=== PATIENT | female | born 1995 | race Caucasian/White ===

== ENCOUNTER 2017-08-09 11:43 | Emergency (ER) | payer OTHER, SELFPAY ==
[2017-08-09] MEDS ORDERED: Ketorolac Tromethamine 60 MG/2 ML VIAL ONE (12:40)
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
== END 2017-08-09 14:40 | disposition home or self-care (01) ==
LOC: ERS 11:43
DX: S39.012A Strain of muscle, fascia and tendon of lower back, initial encounter (principal); S29.012A Strain of muscle and tendon of back wall of thorax, initial encounter; V44.5XXA Car driver injured in collision with heavy transport vehicle or bus in traffic accident, initial encounter
CPT/HCPCS: 71020; 72100; 96372; J1885

== ENCOUNTER 2018-02-05 12:52 | Outpatient (CLI) | payer OTHER | END 2018-02-05 12:53 | disposition home or self-care (01) | LOC: BICCT 12:52 | PROVIDERS: ATTEND Neurological Surgery | DX: M47.896 Other spondylosis, lumbar region (principal); M43.16 Spondylolisthesis, lumbar region; N20.0 Calculus of kidney | CPT/HCPCS: 72131 ==

== ENCOUNTER 2018-03-05 09:54 | Outpatient (CLI) | payer OTHER ==
[2018-03-05 10:56] LABS: BHCG - Serum Negative (NEGATIVE); Pregs Control Background? CLEAR/WHITE (CLR/WHITE); Pregs Control Bar Appear? YES (CONTROL BAR)
== END 2018-03-05 09:55 | disposition home or self-care (01) ==
LOC: LABBT 09:54
PROVIDERS: ATTEND Neurological Surgery
DX: Z01.818 Encounter for other preprocedural examination (principal); M43.16 Spondylolisthesis, lumbar region
CPT/HCPCS: 84703

== ENCOUNTER 2018-04-04 08:13 | Day surgery (SDC) | payer OTHER ==
--- NOTE | 2018-03-11 22:18 | HP ---
DATE OF ENCOUNTER: 03/12/2018 HISTORY OF PRESENT ILLNESS: Ms. Barr is a pleasant 22-year-old woman who presents for evaluatio n of years with lower back pain following a previous evaluation from last year for the same issue. S he had an MRI performed at that time, which revealed an L5-S1 spondylolisthesis secondary to bilatera l pars defects. At that time, she is only having back pain, but now this is worsened to include radi cular L5 symptoms as well as numbness. She does not have any weakness at this point. She does feels that after discussion of a year ago that involved alarm symptoms that she worries about continued pr ogression and would rather get this fixed at this time. PAST MEDICAL HISTORY: Nothing significant other than anemia. CURRENT MEDICATIONS: None. ALLERGIES: No known drug allergies. PHYSICAL EXAMINATION: Patient is alert and oriented x3. Gait is normal. No ataxia. Positive right straight leg raise and left straight leg raise. Reflexes are equal and present bilaterally at the p atella and Achilles tendon. ASSESSMENT: Spondylolisthesis pars defects, lumbar radiculopathy, and back pain. PLAN: Dr. Riley met with the patient, reviewed imaging and advocated for bilateral L5 facetectomy at L5-S1 fusion. He explained to the patient the risks, benefits, and alternatives of the procedure. The patient expressed understanding and would like to move forward with surgery as discussed. I do b elieve the patient is mentally competent and capable of making medical decisions for herself and we w ill move forward with surgery as planned. This is Hector Khan PA-C dictating for Dr. Riley.
[2018-04-03 12:13] VITALS: BMI 29.2
[2018-04-04] MEDS ORDERED: CEFAZOLIN/Water 2 GM/20 ML SYRINGE ONE ×2 (08:47→16:02)
[2018-04-04] MEDS ORDERED: Thrombin 5000 UNITS/5 ML VIAL ONE (09:21)
[2018-04-04] MEDS ORDERED: Bupivacaine HCl 0.5%/Epinephrine 1:200,000/PF 30 ml Vial ONE (09:21)
[2018-04-04 09:37] LABS: BHCG - Serum Negative (NEGATIVE); Pregs Control Background? CLEAR/WHITE (CLR/WHITE); Pregs Control Bar Appear? YES (CONTROL BAR)
[2018-04-04] MEDS ORDERED: Fentanyl 100 MCG/2 ML VIAL ONE ×4 (09:39→12:55)
--- NOTE | 2018-04-04 13:08 | OP ---
DATE OF PROCEDURE: 04/04/2018 SURGEON: Rayray Riley M.D. HEAD IRRIGATOR: Hector Khan PA-C. INDICATION: Pain. PREOPERATIVE DIAGNOSIS: Lumbar spondylolysis with grade I spondylolysis of L5 upon S1. PROCEDURE: Bilateral L5-S1 facetectomy, bilateral L5-S1 posterolateral instrumented fusion, bilatera l placement of allograft and autograft. ANESTHESIA: General. PROCEDURE IN DETAIL: The patient was brought into the operating room and placed under anesthesia. Sh e was flipped from supine to prone position on the operating room table. A linear incision was plann ed over the L5-S1 segment. After prepping and draping and after an appropriate operative pause, the incision was created. The soft tissues swept away from midline. After identifying the appropriate l evel with C-arm fluoroscopy, the facet joints at L5-S1 were removed bilaterally. After decompressing the exiting and descending nerve roots, pedicle screws were placed at L5-S1 bilaterally. An intraop erative 3-D CT scan was performed to confirm appropriate placement of hardware. After confirming the appropriate placement of hardware rods were placed across the screw heads and final tightened with s et screws. Allograft and autograft material was placed within the lateral confines of the instrument ation construct. The wound was irrigated. Hemostasis was maintained throughout. The wound was then closed in anatomic layers and a pressure dressing was applied. There were no known procedural compl ications.
[2018-04-04] MEDS ORDERED: Metoclopramide HCl 10 MG/2 ML VIAL ONE (13:55)
[2018-04-04] MEDS ORDERED: Lidocaine 1% PF 5 ML VIAL ONE (13:55)
[2018-04-04] MEDS ORDERED: Ondansetron HCl/PF 4 MG/2 ML Vial ONE (13:55)
[2018-04-04] MEDS ORDERED: PROPOFOL 200 MG/20 ML VIAL ONE (13:55)
[2018-04-04] MEDS ORDERED: Glycopyrrolate 0.2 MG/ML 5 ML SYRINGE ONE (13:55)
[2018-04-04] MEDS ORDERED: Dexamethasone 20 MG/5 ML VIAL ONE (13:55)
[2018-04-04] MEDS ORDERED: HYDROcodone/Acetaminophen 5/325 mg Tablet ONE (15:08)
== END 2018-04-04 16:18 | disposition home or self-care (01) ==
LOC: SDC 08:13
PROVIDERS: ATTEND Neurological Surgery
PROC: 0SG3071 Fusion of Lumbosacral Joint with Autologous Tissue Substitute, Posterior Approach, Posterior Column, Open Approach (ICD-10-PCS; principal; 2018-04-04)
PROC: 0SG30J1 Fusion of Lumbosacral Joint with Synthetic Substitute, Posterior Approach, Posterior Column, Open Approach (ICD-10-PCS; principal; 2018-04-04)
DX: M43.17 Spondylolisthesis, lumbosacral region (principal); M54.16 Radiculopathy, lumbar region; D64.9 Anemia, unspecified; Z79.899 Other long term (current) drug therapy
CPT/HCPCS: 76001; 84703; 96374; 96375; 96376; C1713; J0131; J0670; J1100; J2001; J2405; J2704; J2765; J3010

== ENCOUNTER 2019-02-01 06:30 | Inpatient (IN) | payer OTHER ==
[2019-02-01] MEDS ORDERED: NS w/ Oxytocin 10 units 500 ML IV SCH ×2 (11:46)
[2019-02-01] MEDS ORDERED: Misoprostol 200 MCG TAB PR PRN (11:46)
[2019-02-01] MEDS ORDERED: HYDROcodone/Acetaminophen 5/325 mg Tablet PO PRN ×2 (11:46→23:44)
[2019-02-01] MEDS ORDERED: Butorphanol Tartrate 1 MG/ML VIAL SLOW IVP PRN (11:46)
[2019-02-01] MEDS ORDERED: Carboprost 250 MCG/ML AMP IM PRN (11:46)
[2019-02-01] MEDS ORDERED: Lidocaine 1% (PF) 30 ML VIAL SC PRN (11:46)
[2019-02-01] MEDS ORDERED: Promethazine HCl 25 MG/ML VIAL IM PRN ×2 (11:46→15:47)
[2019-02-01] MEDS ORDERED: Ondansetron PF 4 MG/2 ML Vial IVP PRN ×2 (11:46→15:47)
[2019-02-01] MEDS ORDERED: Ibuprofen 800 MG TAB PO PRN (11:46)
[2019-02-01] MEDS ORDERED: Methylergonovine 0.2 MG/ML VIAL IM PRN (11:46)
[2019-02-01] MEDS ORDERED: Diphenoxylate HCl/Atropine Tablet PO PRN (11:46)
[2019-02-01] MEDS ORDERED: Penicillin G Potassium 5 MILL.UNITS in Sodium Chloride 0.9% 100 ML IVPB SCH (11:46)
[2019-02-01] MEDS: Lactated Ringer's 1,000 ML IV SCH ×2 (12:21→16:45)
[2019-02-01 12:23] LABS: Hemoglobin 9.9 g/dL (12.0-16.0); Mean Corpuscular HGB CONC 32.5 g/dL (32.0-36.0); Mean Corpuscular Hemoglobin 22.7 pg (27.0-31.0); Mean Corpuscular Volume 69.8 fL (78.0-98.0); Mean Platelet Volume 7.8 fL (7.4-10.4); Platelet Count 327 thou/uL (130-400); RBC Distribution Width 15.7 % (11.5-14.5); Red Blood Cell (RBC) Count 4.36 mill/uL (4.20-5.40); White Blood Cell (WBC) Count 9.5 thou/uL (4.8-10.8)
[2019-02-01 12:30] VITALS: BMI 30.2
[2019-02-01 12:51] LABS: Syphilis Antibody Nonreactive (Nonreactive); Syphilis Antibody Index 0.04 S/CO (<1.00 Non-Reactive)
[2019-02-01 12:53] LABS: HBSAg Index 0.33 S/CO (0-0.99); Hep B Surf Ag Non-Reactive S/CO (NonReactive)
[2019-02-01] MEDS ORDERED: Fentanyl 4 mcg/Bup 0.1% Cadd 100 ML ONE (13:32)
[2019-02-01] MEDS ORDERED: Bupivacaine 0.5% 10 ML VIAL ONE (15:20)
[2019-02-01] MEDS ORDERED: Fentanyl 100 MCG/2 ML VIAL ONE (15:20)
[2019-02-01] MEDS ORDERED: Acetaminophen 325 MG TAB PO PRN (15:47)
[2019-02-01] MEDS ORDERED: Lactated Ringer's 500 ML IV PRN (15:47)
[2019-02-01] MEDS ORDERED: diphenhydrAMINE 50 MG/ML VIAL IVP PRN (15:47)
[2019-02-01] MEDS ORDERED: ePHEDrine/0.9% NaCl/PF SYRINGE 50 mg/10 ml SLOW IVP PRN (15:47)
[2019-02-01] MEDS ORDERED: Eucerin (Mineral Oil/Petrolatum,White) 30 gm Jar TOP PRN (15:47)
[2019-02-01] MEDS ORDERED: Naloxone HCl 0.4 mg/ml Vial IVP PRN ×2 (15:47)
[2019-02-01] MEDS ORDERED: Communication Order-Pharmacy FS SCH (16:00)
[2019-02-01] MEDS ORDERED: Fentanyl 4 mcg/Bupivacaine 0.1% Cassette 100 ML EPIDURAL SCH (16:00)
[2019-02-01] MEDS: Penicillin G 2.5 MILL.units 2.5 MILL.UNITS in Premix Bag 1 BAG IVPB SCH (16:45)
[2019-02-01] MEDS: NS / Oxytocin 40 units/1000ml 1,000 ML IV PRN ×2 (21:30→22:29)
[2019-02-01] MEDS ORDERED: Benzocaine-Menthol 82.5 ML CAN TOP PRN (23:44)
[2019-02-01] MEDS ORDERED: NS / Oxytocin 40 units/1000ml 1,000 ML IV SCH (23:44)
[2019-02-01] MEDS ORDERED: Milk Of Magnesia 30 ML UDCUP PO PRN (23:44)
[2019-02-01] MEDS ORDERED: Lanolin Ointment 7 GM TUBE TOP PRN (23:44)
[2019-02-01] MEDS ORDERED: Preparation H Ointment 28 GM TUBE PR PRN (23:44)
[2019-02-01] MEDS ORDERED: Bisacodyl 10 MG SUPP PR PRN (23:44)
[2019-02-01] MEDS ORDERED: diphenhydrAMINE 25 MG CAP PO PRN (23:44)
[2019-02-01] MEDS ORDERED: Ibuprofen 800 MG TAB PO SCH (23:45)
[2019-02-02] MEDS: Penicillin G 2.5 MILL.units 2.5 MILL.UNITS in Premix Bag 1 BAG IVPB SCH (01:27)
[2019-02-02] MEDS: Ibuprofen 800 MG TAB PO SCH ×3 (05:03→22:13)
[2019-02-02 07:31] LABS: Hemoglobin 8.8 g/dL (12.0-16.0); Mean Corpuscular HGB CONC 32.1 g/dL (32.0-36.0); Mean Corpuscular Hemoglobin 22.7 pg (27.0-31.0); Mean Corpuscular Volume 70.7 fL (78.0-98.0); Mean Platelet Volume 7.5 fL (7.4-10.4); Platelet Count 265 thou/uL (130-400); RBC Distribution Width 15.7 % (11.5-14.5); Red Blood Cell (RBC) Count 3.88 mill/uL (4.20-5.40); White Blood Cell (WBC) Count 12.7 thou/uL (4.8-10.8)
[2019-02-02] MEDS: Docusate Calcium (SURFAK) 240 MG CAP PO SCH ×2 (08:15→20:27)
[2019-02-02] MEDS: Prenatal Vitamin 1 TAB PO SCH (08:15)
[2019-02-02] MEDS: HYDROcodone/Acetaminophen 5/325 mg Tablet PO PRN (08:16)
[2019-02-02] MEDS: Ferrous Sulfate 325 MG TAB PO SCH ×2 (08:17→20:27)
[2019-02-02] MEDS ORDERED: Adacel (T-DAP) 0.5 ML SYRINGE IM ONE (09:00)
[2019-02-03] MEDS: Ibuprofen 800 MG TAB PO SCH ×2 (05:30→14:28)
[2019-02-03] MEDS: Ferrous Sulfate 325 MG TAB PO SCH (09:58)
[2019-02-03] MEDS: Prenatal Vitamin 1 TAB PO SCH (09:58)
[2019-02-03] MEDS: HYDROcodone/Acetaminophen 5/325 mg Tablet PO PRN (09:58)
[2019-02-03] MEDS: Docusate Calcium (SURFAK) 240 MG CAP PO SCH (09:58)
[2019-02-03 13:10] VITALS: BP 104/64; TEMP 98
[2019-02-03] MEDS ORDERED: Measles/Mumps/Rubella 10 MCG/0.5 ML VIAL SC ONE (14:15)
== END 2019-02-03 15:00 | disposition home or self-care (01) | DRG 807 ==
LOC: L&D 11:33 → 3SW 02-02 00:06
PROVIDERS: ADMIT Family Medicine; ATTEND Family Medicine
PROC: 10E0XZZ Delivery of Products of Conception, External Approach (ICD-10-PCS; principal; 2019-02-01)
PROC: 3E033VJ Introduction of Other Hormone into Peripheral Vein, Percutaneous Approach (ICD-10-PCS; 2019-02-01)
PROC: 10907ZC Drainage of Amniotic Fluid, Therapeutic from Products of Conception, Via Natural or Artificial Opening (ICD-10-PCS; 2019-02-01)
DX: O80 Encounter for full-term uncomplicated delivery (principal); Z37.0 Single live birth; Z3A.39 39 weeks gestation of pregnancy
CPT/HCPCS: 36415; 51702; 85027; 86780; 86850; 86900; 86901; 87340; 90707; J2001; J2590; J3010; J3490

== ENCOUNTER 2019-06-07 13:40 | Outpatient (CLI) | payer OTHER ==
--- NOTE | 2019-06-07 15:36 | CT ---
CT LUMBAR SPINE WITHOUT CONTRAST: 06/07/19 Axial tomograms with multiplanar reconstruction. INDICATIONS: Low back pain. Lumbar radiculopathy. COMPARISON: Comparison made to CT lumbar spine 02/05/18. FINDINGS: Pedicle screws are now seen in place transfixing L5-S1. There is a grade I spondylolisthesis of L5-S1 which has progressed when compared to the prior study. Posterior spondylolysis is again noted. There is mild disc space loss at L5-S1 with diffuse bulge. Bilateral foraminal stenosis secondary to broad based bulge extending into the foramina exacerbated by the anterolisthesis. At L4-5, there is disc density seen in the anterior spinal canal centrally and to the right concernin g for disc protrusion. This is suboptimally evaluated due to spray artifact from the metallic screws and rods. No evidence of foraminal stenosis. At L3-4, mild disc bulge abuts the thecal sac. No central canal or foraminal stenosis. At L2-3, no disc bulge. No significant central canal or foraminal stenosis. At L1-2, no significant abnormality. IMPRESSION: 1. Progression of the anterior spondylolisthesis of L5-S1. Pedicle screws and rods are now in pl frank transfixing L5-S1. Broad based bulge at L5-S1 combined with the listhesis results in bilateral fo raminal stenosis. 2. Question disc protrusion at L4-5. This is suboptimally evaluated due to artifact at this leve l. POS: [facility]
== END 2019-06-07 13:41 | disposition home or self-care (01) ==
LOC: BICCT 13:40
PROVIDERS: ATTEND Neurological Surgery
DX: M54.16 Radiculopathy, lumbar region (principal); M43.17 Spondylolisthesis, lumbosacral region; M48.07 Spinal stenosis, lumbosacral region; M51.87 Other intervertebral disc disorders, lumbosacral region; Z98.890 Other specified postprocedural states
CPT/HCPCS: 72131

== ENCOUNTER 2019-07-08 10:30 | Inpatient (IN) | payer OTHER ==
[2019-08-09 10:52] VITALS: BMI 27.4
[2019-08-16] MEDS ORDERED: Bupivacaine PF 0.5% 30 ML VIAL ONE (06:38)
[2019-08-16] MEDS ORDERED: Thrombin 5000 UNITS/5 ML VIAL ONE (06:38)
[2019-08-16] MEDS ORDERED: Lidocaine 1% w/Epinephrine 1:100K 20 ML VIAL ONE (06:38)
[2019-08-16] MEDS ORDERED: HYDROmorphone 0.5 MG/0.5 ML SYRINGE ONE (06:54)
[2019-08-16] MEDS ORDERED: Promethazine HCl 25 MG/ML VIAL ONE (06:54)
[2019-08-16] MEDS ORDERED: Fentanyl 100 MCG/2 ML VIAL ONE ×2 (06:54→08:39)
[2019-08-16] MEDS ORDERED: Acetaminophen/Codeine 30-300mg Tablet ONE (10:41)
[2019-08-16] MEDS ORDERED: Lidocaine 1% PF 5 ML VIAL ONE (10:45)
[2019-08-16] MEDS ORDERED: PROPOFOL 200 MG/20 ML VIAL ONE (10:45)
[2019-08-16] MEDS ORDERED: Ondansetron PF 4 MG/2 ML Vial ONE (10:45)
[2019-08-16] MEDS ORDERED: Glycopyrrolate 0.2 MG/ML 5 ML SYRINGE ONE (10:45)
[2019-08-16] MEDS ORDERED: Rocuronium Bromide 10 MG/ML (10ML VIAL) ONE (10:45)
[2019-08-16] MEDS ORDERED: ePHEDrine/0.9% NaCl/PF SYRINGE 50 mg/10 ml ONE (10:45)
[2019-08-16] MEDS ORDERED: Ketorolac Tromethamine 30 MG/ML VIAL ONE (10:45)
[2019-08-16] MEDS ORDERED: Dexamethasone 20 MG/5 ML VIAL ONE (10:45)
--- NOTE | 2019-08-16 11:08 | OP ---
DATE OF PROCEDURE: 08/16/2019 DIE CUTTER DIAMOND: Hector Khan PA-C INDICATION: Low back pain and hardware failure. PROCEDURES PERFORMED: Exploration of fusion and removal of posterior segmental hardware. ANESTHESIA: General. DESCRIPTION OF PROCEDURE: The patient was brought into the operating room and placed under general anesthesia. She was flipped from the supine to prone position on the operating room table. A linear incision was planned to the location of a prior incision. After prepping and draping and after an appropriate perioperative pause, the incision was created. The soft tissues were swept away from midline. The ectopic bone consistent with the patient's last fusion was identified and portions of it were removed. The screws were identified bilaterally at L5-S1 and were toggling. Set screws, the pedicle screws and both rods were removed such that there was complete removal of hardware. Gelfoam pledgets were placed within the screw holes. The wound was irrigated. Hemostasis was maintained throughout. The wound was then closed in anatomic layers and a pressure dressing was applied. There were no known procedural complications. Job ID: [id number]
== END 2019-08-16 11:00 | disposition home or self-care (01) | DRG 497 ==
LOC: SURG A 08-16 05:47
PROVIDERS: ADMIT Neurological Surgery; ATTEND Neurological Surgery
PROC: 0QP004Z Removal of Internal Fixation Device from Lumbar Vertebra, Open Approach (ICD-10-PCS; principal; 2019-08-16)
DX: T84.296A Other mechanical complication of internal fixation device of vertebrae, initial encounter (principal); Y83.8 Other surgical procedures as the cause of abnormal reaction of the patient, or of later complication, without mention of misadventure at the time of the procedure
CPT/HCPCS: 76000; J0690; J1100; J1170; J1885; J2001; J2405; J2550; J2704; J3010; S0020

== ENCOUNTER 2019-07-08 14:49 | Outpatient (CLI) | payer OTHER ==
--- NOTE | 2019-07-08 15:19 | RAD ---
Lumbar spine 2 views: 07/08/2019 COMPARISON: 08/09/2017 radiographs and lumbar spine CT performed 06/07/2019 HISTORY: Disability examination FINDINGS: There is lucency adjacent to bilateral S1 pedicle screws suggesting loosening. Pedicle scre ws are also present at L5 with vertically oriented interlocking rods. Postoperative clips in the right upper quadrant suggest prior cholecystectomy. There is an IUD overly ing the pelvis. There is anterolisthesis of L5 on S1 measuring approximately 1.7 cm IMPRESSION: Anterolisthesis of L5 on S1, worsened when compared to the 2017 radiograph. There is prom inent lucency adjacent to bilateral S1 pedicle screws, evidence of loosening, as seen on recent CT examination performed 06/07/2019. Recommend neurosurgical consultation.
== END 2019-07-08 14:50 | disposition home or self-care (01) ==
LOC: BICRAD 14:49
PROVIDERS: ATTEND Internal Medicine
DX: Z02.71 Encounter for disability determination (principal); M43.17 Spondylolisthesis, lumbosacral region
CPT/HCPCS: 72100

== ENCOUNTER 2019-08-09 06:35 | Outpatient (CLI) | payer OTHER ==
[2019-08-09 11:35] LABS: BHCG - Serum Negative (NEGATIVE); Pregs Control Background? CLEAR/WHITE (CLR/WHITE); Pregs Control Bar Appear? YES (CONTROL BAR)
== END 2019-08-09 06:36 | disposition home or self-care (01) ==
LOC: LABBT 06:35
PROVIDERS: ATTEND Neurological Surgery
DX: Z01.812 Encounter for preprocedural laboratory examination (principal); M54.5 Low back pain
CPT/HCPCS: 84703

== ENCOUNTER 2019-08-13 10:17 | Outpatient (CLI) | payer OTHER ==
--- NOTE | 2019-08-13 11:50 | ULT ---
Pelvic sonogram transabdominal imaging with duplex evaluation HISTORY: Uterine contraceptive device. Absent retrievable strings. FINDINGS: Urinary bladder is incompletely distended. Uterus measures up to 11.5 cm. No focal mass. T- shaped echogenic object within the uterine fundus. No endometrial fluid. No free fluid in the pelvis. Each ovary has a normal appearance and demonstrates good color and spectral Doppler flow. Bilateral f ollicles. IMPRESSION: Intrauterine contraceptive device within the endometrial cavity. No abnormalities are dem onstrated.
== END 2019-08-13 10:18 | disposition home or self-care (01) ==
LOC: ULT 10:17
PROVIDERS: ATTEND Nurse Practitioner Women's Health
DX: T83.32XA Displacement of intrauterine contraceptive device, initial encounter (principal)
CPT/HCPCS: 76856; 93976

== ENCOUNTER 2019-08-30 22:21 | Emergency (ER) | payer OTHER ==
[2019-08-30] MEDS ORDERED: Ibuprofen 800 MG TAB ONE (22:41)
== END 2019-08-31 01:00 | disposition home or self-care (01) ==
LOC: ERS 22:21
DX: J10.1 Influenza due to other identified influenza virus with other respiratory manifestations (principal); Z79.891 Long term (current) use of opiate analgesic; Z79.899 Other long term (current) drug therapy
CPT/HCPCS: 87081; 87430; 87804; 99283

== ENCOUNTER 2019-09-14 21:30 | Emergency (ER) | payer OTHER ==
[2019-09-14 21:48] LABS: Bacteria/HPF None Seen HPF (None Seen); Bilirubin Negative (Negative); Blood, Urine 2+ (Negative); Clarity Clear (Clear); Glucose, Urine (Dipstick) Normal (Negative); Leukocyte Negative Leu/uL (Negative); Nitrite Negative (Negative); Protein, Urine (Dipstick) 20 mg/dL (Neg-Trace); RBC/HPF 0-3 HPF (0-3); Squamous Epithelial 0-3 HPF (0-3); Urobilinogen Normal mg/dL (Less than 2); WBC/HPF 0-3 HPF (0-3)
[2019-09-14 21:50] LABS: Pregnancy Test - Urine (BHCG) POSITIVE (Negative); Pregu Control Background? CLEAR/WHITE (CLR/WHITE); Pregu Control Bar Appear? YES (CONTROL BAR); Specific Gravity 1.026 (1.002-1.036)
[2019-09-14 21:52] LABS: #Eosinphils 0.1 thou/uL (0.0-0.7); #Lymphocytes 2.5 thou/uL (1.20-3.40); #Monocytes 0.4 thou/uL (0.11-0.59); #Neutrophils 5.3 thou/uL (1.40-6.50); %Basophils 0.3 % (0.0-1.0); %Eosinophils 1.5 % (0.0-10.0); %Lymphocytes 29.6 % (21.0-51.0); %Monocytes 4.9 % (0.0-10.0); %Neutrophils 63.7 % (42.0-75.0); Mean Corpuscular HGB CONC 33.6 g/dL (32.0-36.0); Mean Corpuscular Hemoglobin 25.5 pg (27.0-31.0); Mean Corpuscular Volume 75.8 fL (78.0-98.0); Mean Platelet Volume 7.2 fL (7.4-10.4); Platelet Count 298 thou/uL (130-400); RBC Distribution Width 13.8 % (11.5-14.5); Red Blood Cell (RBC) Count 4.69 mill/uL (4.20-5.40); White Blood Cell (WBC) Count 8.4 thou/uL (4.8-10.8)
[2019-09-14 22:11] LABS: ALT (SGPT) 28 U/L (8-55); AST (SGOT) 16 U/L (5-34); Albumin 4.3 g/dL (3.5-5.0); Alkaline Phosphatase 108 U/L (40-110); Anion Gap 10 mmol/L (10-20); BUN (Urea Nitrogen) 8 mg/dL (7.0-18.7); Bilirubin, Total 0.2 mg/dL (0.2-1.2); Calc. Creatinine Clearance 0 mL/min (70-130); Calcium 9.2 mg/dL (7.8-10.44); Carbon Dioxide 27 mmol/L (22-29); Chloride 105 mmol/L (98-107); Estimated GFR-MDRD Greater than 90; Globulin 3.4 g/dL (2.4-3.5); Glucose 92 mg/dL (70-105); Potassium 3.2 mmol/L (3.5-5.1); Protein, Total 7.7 g/dL (6.0-8.3); Sodium 139 mmol/L (136-145)
--- NOTE | 2019-09-14 23:11 | ULT ---
US Pelvic Transvag HISTORY: Vaginal bleeding with positive test. COMPARISON: None. FINDINGS: Real-time imaging of the pelvis was obtained with an endovaginal probe. This shows a tiny c ystic structure measuring 6 mm in size within the endometrium in the fundus region. No pole or yolk sac are identified. The right and left ovaries show small follicles. No free fluid demonstrated. Doppler evaluation with spectral analysis: Normal flow shown to the adnexa. IMPRESSION: Small cystic structure within the endometrium, this is potentially an early gestational s ac but no yolk sac or pole are seen. The measurements would correspond to 5 weeks 2 days.
== END 2019-09-14 23:41 | disposition home or self-care (01) ==
LOC: ERS 21:30
DX: O20.9 Hemorrhage in early pregnancy, unspecified (principal); Z3A.01 Less than 8 weeks gestation of pregnancy
CPT/HCPCS: 36415; 76856; 80053; 81003; 81015; 81025; 84702; 85025; 86900; 86901

== ENCOUNTER 2020-02-14 15:53 | Outpatient (CLI) | payer OTHER ==
--- NOTE | 2020-02-14 16:41 | ULT ---
Ultrasound right breast: 02/14/2020 HISTORY: 24-year-old female with palpable right breast lump for one week. TECHNIQUE: Focused ultrasound of the palpable lump in the right upper inner quadrant at the 2:00 position, 5 cm from the nipple. FINDINGS: At that location, there is a very irregularly-shaped 0.9 x 0.6 x 0.4 cm cystic lesion. During real-ti me scanning, it is demonstrated that several mildly dilated ducts communicate with this. No blood flow demonstrated by Doppler. No acoustic shadowing. No architectural distortion or spiculation. IMPRESSION: 1. Finding may represent a small galactocele. 2. BI-RADS 2-benign findings. 3. If the palpable lump does not resolve in the next few months, a follow-up right breast ultrasound should be performed in 4-6 months.
== END 2020-02-14 15:54 | disposition home or self-care (01) ==
LOC: BICULT 15:53
PROVIDERS: ATTEND Nurse Practitioner
DX: N63.10 Unspecified lump in the right breast, unspecified quadrant (principal)

== ENCOUNTER 2020-02-26 15:51 | Emergency (ER) | payer OTHER ==
[2020-02-27 11:06] LABS: SARS-CoV-2 MS2 Positive; SARS-CoV-2 N Gene Negative; SARS-CoV-2 S Gene Negative; SARS-CoV-2 orf1ab Negative
== END 2020-02-26 17:59 | disposition home or self-care (01) ==
LOC: ERS 15:51
DX: R51 Headache (principal); Z20.828 Contact with and (suspected) exposure to other viral communicable diseases
CPT/HCPCS: 87635; 99283; U0003

== ENCOUNTER 2020-06-16 08:30 | Outpatient (CLI) | payer OTHER ==
--- NOTE | 2020-06-16 09:38 | ULT ---
RIGHT BREAST ULTRASOUND: Date: 06/16/2020 HISTORY: Follow-up of cystic lesion right breast. COMPARISON: 02/14/2020 study. FINDINGS: Fibroglandular tissue is dense with somewhat prominent ducts. The area which appears to be a focal ar ea of ectasia related to the ducts measuring 7.0 mm in size is stable in appearance as compared to th e prior exam. IMPRESSION: Somewhat irregularly shaped cystic lesion which appears entirely stable as compared to the previous s tudy. No further workup would be needed unless there is significant change in clinical status. POS: [facility]
== END 2020-06-16 08:31 | disposition home or self-care (01) ==
LOC: BICULT 08:30
PROVIDERS: ATTEND Family Medicine
DX: N63.20 Unspecified lump in the left breast, unspecified quadrant (principal)

== ENCOUNTER 2020-07-24 08:14 | Day surgery (SDC) | payer OTHER ==
[2020-07-24 08:49] VITALS: BP 116/72; TEMP 98.8; BMI 30.1
[2020-07-24] MEDS ORDERED: FLU VACC QS2020-21(6MOS UP)/PF 60 MCG/0.5 ML SYRINGE IM ONE (09:00)
[2020-07-24] MEDS ORDERED: hydrALAZINE 20 MG/ML VIAL SLOW IVP PRN (10:05)
[2020-07-24 10:36] LABS: Bilirubin Negative (Negative); Blood, Urine 3+ (Negative); Clarity Clear (Clear); Glucose, Urine (Dipstick) Normal (Negative); Ketone, Urine Negative (Negative); Leukocyte 250 Leu/uL (Negative); Mucous/LPF 1+ LPF (<2+); Nitrite 2+ (Negative); Protein, Urine (Dipstick) 20 mg/dL (Neg-Trace); RBC/HPF Greater than 50 HPF (0-3); Specific Gravity, Urine 1.022 (1.002-1.036); Squamous Epithelial 0-3 HPF (0-3); Urobilinogen Normal mg/dL (Less than 2)
[2020-07-24 10:43] LABS: Bacteria/HPF 4+ HPF (None Seen)
[2020-07-24 10:44] LABS: Urine Culture Reflex Yes Yes
[2020-07-24] MEDS ORDERED: Betamet Acet/Betamet Na Ph 30 MG/5 ML VIAL ONE (10:51)
--- NOTE | 2020-07-24 11:13 | PDOC.BPN ---
- Brief Progress Note Encounter Date: 07/24/20 Encounter Time: 11:15 TVUS is 5.8 cm, no previa, no VB noted. UA has evidence UTI. Will RX macrobid
--- NOTE | 2020-07-24 11:30 | HP ---
The patient is in triage A. Time was roughly 1030 hours. The patient of Dr. Lamberto Celestin with Family Medicine. CHIEF COMPLAINT: Small amount of vaginal bloody discharge/drop of blood after going to the restroom. HISTORY OF PRESENT ILLNESS: This is a 24-year-old, G9, P6, AB2, living 6, who is at 31 weeks and 5 days with an EDC of 09/20, who states that she had a little bit of vaginal spotting after she went to the restroom today. She denies any recent trauma, any vaginal penetration, and she denies any contractions. She has also stated some decreased movement. She also states that she has a little bit of burning on urination and a little bit of pelvic pressure, but denies any fevers, nausea, vomiting, or sick contacts. She denies any issues. REVIEW OF SYSTEMS: Complete review of systems was checked and is otherwise negative unless specified in the HPI. PAST MEDICAL HISTORY: Negative. PAST SURGICAL HISTORY: Cholecystectomy and back surgery. OB HISTORY: She has had vaginal deliveries in the past with the last one being in 2008. SOCIAL HISTORY: Negative. PHYSICAL EXAMINATION: GENERAL: She is in no acute distress. VITAL SIGNS: Show blood pressure of 116/70. She is afebrile with a temperature of 98.8, pulse is 95, respirations are unlabored at 16 to 17. : The uterus is soft, nontender, and there are no abdominal contusions. There is no gross evidence of vaginal bleeding at the perineum. monitors, heart tones are reactive for gestational age and about 140s to 150s with no pathological decelerations. There were no contractions on tocodynamometer. Interventions ordered, I have ordered a cath UA and a transvaginal ultrasound to check cervical length. ASSESSMENT: This is a 24-year-old, G9, P6, AB2, living 6 with the last delivery in 2019 with a small vaginal spotting in the morning, but no real contractions. She has no history of placenta previa. She has no other OB risk factors. PLAN: 1. Reassurance given. 2. heart tones are reactive for age and so the decreased movement may be just related to size and I have given her that information. 3. Dysuria. I have ordered a trans a cath UA with reflex for evaluation. 4. I have ordered a transvaginal ultrasound to assess for cervical length to make sure that the spotting was not result of labor. Job ID: [id number]
--- NOTE | 2020-07-24 13:08 | ULT ---
PELVIC ULTRASOUND: Transabdominal ultrasound performed of the pelvis. INDICATION: . Assess cervical length. FINDINGS: Limited OB ultrasound performed. Gestational age and biometry measurements were not assessed. There is a posterior placenta. Breech presentation. heart rate: 117 b.p.m. Cervical length: 5.7 cm. Cervix is closed. POS: [facility]
== END 2020-07-24 11:30 | disposition home or self-care (01) ==
LOC: L&D/OP 08:14
PROVIDERS: ATTEND Family Medicine
DX: O26.853 Spotting complicating pregnancy, third trimester (principal); O23.43 Unspecified infection of urinary tract in pregnancy, third trimester; B96.1 Klebsiella pneumoniae [K. pneumoniae] as the cause of diseases classified elsewhere; O32.1XX0 Maternal care for breech presentation, not applicable or unspecified; O09.293 Supervision of pregnancy with other poor reproductive or obstetric history, third trimester; Z3A.31 31 weeks gestation of pregnancy
CPT/HCPCS: 51701; 76856; 81001; 87077; 87086; 87186; 99282; J0702

== ENCOUNTER 2020-08-13 10:59 | Inpatient (IN) | payer OTHER ==
[2020-08-13] MEDS ORDERED: Acetaminophen 500 MG TAB ONE (11:34)
[2020-08-13] MEDS ORDERED: Vancomycin 1 GM/200 ML BAG ONE (11:41)
[2020-08-13] MEDS ORDERED: Ondansetron PF 4 MG/2 ML Vial ONE (11:41)
[2020-08-13 11:47] LABS: Bacteria/HPF 2+ HPF (None Seen); Bilirubin Negative (Negative); Blood, Urine Negative (Negative); Clarity Turbid (Clear); Glucose, Urine (Dipstick) 100 mg/dL (Negative); Ketone, Urine 80 mg/dL (Negative); Leukocyte 500 Leu/uL (Negative); Nitrite 2+ (Negative); Protein, Urine (Dipstick) 50 mg/dL (Neg-Trace); Specific Gravity, Urine 1.025 (1.002-1.036); Squamous Epithelial 0-3 HPF (0-3); WBC/HPF Greater than 50 HPF (0-3)
--- NOTE | 2020-08-13 11:57 | RAD ---
PORTABLE CHEST: Date: 08/13/2020 HISTORY: Cough and fever. FINDINGS: Lungs appear clear. No infiltrate identified. Heart and mediastinum unremarkable. IMPRESSION: No acute process. POS: [facility]
[2020-08-13 12:07] LABS: ALT (SGPT) 10 U/L (8-55); AST (SGOT) 16 U/L (5-34); Albumin 3.5 g/dL (3.5-5.0); Alkaline Phosphatase 147 U/L (40-110); Anion Gap 15 mmol/L (10-20); BUN (Urea Nitrogen) 6 mg/dL (7.0-18.7); Bilirubin, Total 0.9 mg/dL (0.2-1.2); Calc. Creatinine Clearance 0 mL/min (70-130); Calcium 8.9 mg/dL (7.8-10.44); Carbon Dioxide 22 mmol/L (22-29); Chloride 100 mmol/L (98-107); Estimated GFR-MDRD Greater than 90; Globulin 3.7 g/dL (2.4-3.5); Glucose 130 mg/dL (70-105); Protein, Total 7.2 g/dL (6.0-8.3); Sodium 134 mmol/L (136-145)
[2020-08-13 12:10] LABS: Hemoglobin 9.7 g/dL (12.0-16.0); Mean Corpuscular HGB CONC 31.7 g/dL (32.0-36.0); Mean Corpuscular Hemoglobin 21.7 pg (27.0-31.0); Mean Corpuscular Volume 68.6 fL (78.0-98.0); Mean Platelet Volume 7.4 fL (7.4-10.4); Platelet Count 278 thou/uL (130-400); RBC Distribution Width 13.8 % (11.5-14.5); Red Blood Cell (RBC) Count 4.48 mill/uL (4.20-5.40); White Blood Cell (WBC) Count 22.4 thou/uL (4.8-10.8)
[2020-08-13] MEDS ORDERED: cefTRIAXone\\ROCEPHIN 2 GM VIAL ONE (12:16)
[2020-08-13 12:30] LABS: Anisocytosis SLIGHT = 6-15 cells (100X) (0-5/hpf); Band 27 % (5-11); Hypochromia SLIGHT = 6-15 cells (100X) (0-5/hpf); Lymphocytes 7 % (21-51); MDiff Complete? YES; Microcytosis MODERATE=15-30 cells (100X) (0-5/hpf); Monocytes 4 % (0-10); Neutrophil 62 % (42-75); Platelet Morphology Comment Appears Adequate; Polychromasia SLIGHT = 2-3 cells (100X) (0-2/hpf)
[2020-08-13 14:04] LABS: SARS-CoV-2 NAA Rapid Test Not Detected (NotDetected)
[2020-08-13 15:28] LABS: Lactic Acid 2.2 mmol/L (0.5-2.2)
[2020-08-13] MEDS ORDERED: hydrALAZINE 20 MG/ML VIAL SLOW IVP PRN (15:29)
[2020-08-13] MEDS ORDERED: Promethazine HCl 25 MG/ML VIAL IM PRN (15:29)
[2020-08-13] MEDS ORDERED: Ondansetron PF 4 MG/2 ML Vial IVP PRN (15:29)
[2020-08-13] MEDS: Acetaminophen 325 MG TAB PO PRN ×2 (15:38→20:36)
[2020-08-13 15:42] VITALS: BMI 31.5
--- NOTE | 2020-08-13 15:44 | HP ---
REASON FOR ADMISSION: A 35 weeks' gestation with pyelonephritis and severe sepsis. HISTORY OF PRESENT ILLNESS: The patient is a 24-year-old, 9, para 6, AB 2, living 6, at 35 weeks with EDC of 09/20, who was seen back on 07/24 with a UTI. She was treated with Macrodantin and discharged home. Follow up on the culture revealed to be Klebsiella pneumoniae, intermediate to nitrofurantoin, but sensitive to all other antibiotics. Dr. Celestin's office changed her to a cephalosporin, which she reports having taken. However, she reports increasing back pain and worsening myalgias, chills, and subjective tachycardia at home. She presented to the emergency room febrile, pulse of 160, lactate of 3.7, with findings consistent with severe sepsis. T-max in the emergency room was 101.1. The patient remained at 100% oxygen saturation on room air with no tachypnea. She is now transferred to Labor and Delivery unit for further care. COVID test is negative. PUBLIC HEALTH EPIDEMIOLOGIST HISTORY: As noted. Antepartum record not available on the unit. MEDICAL HISTORY: None. SURGICAL HISTORY: Cholecystectomy and back surgery. OBSTETRICAL HISTORY: Multiple vaginal deliveries, last one in 2019. SOCIAL HISTORY: Denies tobacco, alcohol, or IV drug abuse. FAMILY HISTORY: Noncontributory. REVIEW OF SYSTEMS: Noncontributory. PHYSICAL EXAMINATION: VITAL SIGNS: Pulse 120, respirations 18, temperature 99.8. HEENT: Within normal limits. LUNGS: Clear to auscultation bilaterally. She has mild CVA tenderness bilaterally. ABDOMEN: Soft, nontender. FHTs 140s. Fundal height 35. Vulva without lesions. Vagina without discharge. Cervical exam deferred. EXTREMITIES: No clubbing, cyanosis, or edema. LABORATORY DATA: White count of 22.4, hematocrit of 30.7, 27% bands, and 62% neutrophils. Mild hyponatremia at 134, potassium at 3.0, BUN of 6, creatinine 0.69. Lactate of 3.7, repeat pending. Urinalysis reveals 80 ketones, 2+ nitrites, 500 leukocyte esterase, greater than 50 wbc's per high-power field, 4 to 6 rbc's per high-power field, with 2+ bacteria. COVID is negative. IMPRESSION: Urinary tract infection with sepsis at 35 weeks' gestation, now status post initiation of sepsis protocol. PLAN: Continue ceftriaxone 2 g IV q.24 hours, finish fluid bolus and continue at 125/hour of normal saline, repeat lactic acid, monitoring, follow up blood cultures and urine cultures, renal ultrasound to rule out nephrolithiasis tomorrow. LICU care on the Labor and Delivery unit. Job ID: [id number]
[2020-08-13 17:25] LABS: HBSAg Index 0.21 S/CO (0-0.99); Hep B Surf Ag Non-Reactive S/CO (NonReactive); Syphilis Antibody Nonreactive (Nonreactive); Syphilis Antibody Index 0.04 S/CO (<1.00 Non-Reactive)
[2020-08-14] MEDS: Acetaminophen 325 MG TAB PO PRN ×5 (00:43→21:23)
[2020-08-14 06:52] LABS: Hemoglobin 7.8 g/dL (12.0-16.0); Mean Corpuscular HGB CONC 32.6 g/dL (32.0-36.0); Mean Corpuscular Volume 70.8 fL (78.0-98.0); Mean Platelet Volume 7.1 fL (7.4-10.4); Platelet Count 188 thou/uL (130-400); RBC Distribution Width 13.9 % (11.5-14.5); Red Blood Cell (RBC) Count 3.38 mill/uL (4.20-5.40)
[2020-08-14 07:02] LABS: Anion Gap 15 mmol/L (10-20); BUN (Urea Nitrogen) 4 mg/dL (7.0-18.7); Calc. Creatinine Clearance 186 mL/min (70-130); Calcium 8.4 mg/dL (7.8-10.44); Carbon Dioxide 16 mmol/L (22-29); Chloride 108 mmol/L (98-107); Estimated GFR-MDRD Greater than 90; Glucose 108 mg/dL (70-105); Sodium 136 mmol/L (136-145)
[2020-08-14 07:08] LABS: Potassium 2.6 mmol/L (3.5-5.1)
--- NOTE | 2020-08-14 07:16 | PRG ---
DATE OF SERVICE: 08/14/2020 TIME OF SERVICE: 0645. SUBJECTIVE: Ms. Barr is now hospital day #0 to #1 with severe sepsis secondary to urinary tract infection, likely Klebsiella pneumoniae. OBJECTIVE: VITAL SIGNS: Temperature max was 101.3 overnight, T now is 99.2, pulse 140, respirations 18, blood pressure 106/72. She has had good urine output. GENERAL: States that she feels much better. FHTs are 180s. LUNGS: Clear to auscultation bilaterally. HEART: Regular rate and rhythm. ABDOMEN: Soft and nontender without rebound or guarding. Fundal height is 35. EXTREMITIES: No clubbing, cyanosis, or edema. Urine culture pending. Repeat a.m. labs pending. Renal ultrasound completed but results pending. IMPRESSION: Severe sepsis secondary to urinary tract infection at 35 weeks gestation, resolving. PLAN: Continue care. Follow up labs. Continue Rocephin 2 g IV q.24 hours. Job ID: [id number]
--- NOTE | 2020-08-14 07:41 | PRG ---
DATE OF SERVICE: 08/14/2020 SUBJECTIVE: Ms. Barr's temperature now is 99.2, her pulse is 136. FHTs are in the 150s. Renal ultrasound result is still pending. Repeat hematocrit this morning was 23.9 with hemoglobin of 7.8 [place] [address]. Differential is pending. Platelet count is normal at 188. Her potassium is low at 2.6. Creatinine is 0.59. Repeat lactic is not back. Urine cultures not back. IMPRESSION: 1. Severe anemia secondary to chronic iron deficiency anemia and interposed with hemolytic anemia secondary to sepsis. 2. Hypokalemia secondary to hemolysis and sepsis. PLAN: 1. 1 unit PRBCs, transfuse. 2. Change IV fluids to normal saline 40 mEq of potassium per L and repeat labs in a.m. Job ID: [id number]
[2020-08-14] MEDS: NS 0.9% w/ 40 MEQ KCL 1,000 ML IV SCH ×2 (07:50→19:33)
--- NOTE | 2020-08-14 08:06 | ULT ---
Exam: Bilateral renal ultrasound HISTORY: Klebsiella. Urosepsis COMPARISON: None FINDINGS: Right kidney: Moderate right-sided dilatation of the intrarenal collecting system. Right kidney measurements: 5.2 x 12.8 x 6.0 cm. Left kidney: Mild dilatation of the intrarenal collecting system. Left kidney measurements 6.2 x 13.0 x 5.8 cm. Urinary bladder: Prevoid volume is 387 mL. Post void volume is 12 mL. Neither ureteral jet could be i dentified IMPRESSION: 1. Moderate right hydronephrosis. 2. Mild left hydronephrosis. 3. Neither ureteral jet is appreciated.
[2020-08-14 08:38] LABS: Band 23 % (5-11); Lymphocytes 3 % (21-51); MDiff Complete? YES; Metamyelocyte 1 % (0-0); Microcytosis MODERATE=15-30 cells (100X) (0-5/hpf); Monocytes 2 % (0-10); Neutrophil 70 % (42-75); Ovalocytes SLIGHT = 2-5 cells (100X) (0-1/hpf); Platelet Morphology Comment Appears Adequate; Polychromasia MODERATE = 3-4 cells (100X) (0-2/hpf); Reactive Lymphocytes 1 % (0-10)
[2020-08-14] MEDS: cefTRIAXone\\ROCEPHIN 2 GM in Sodium Chloride 0.9% 100 ML IVPB SCH (12:02)
[2020-08-14] MEDS: Ferrous Sulfate 325 MG TAB PO SCH (17:30)
[2020-08-15] MEDS: Acetaminophen 325 MG TAB PO PRN ×4 (03:53→21:24)
[2020-08-15] MEDS: NS 0.9% w/ 40 MEQ KCL 1,000 ML IV SCH (03:54)
--- NOTE | 2020-08-15 09:02 | PRG ---
DATE OF SERVICE: 08/15/2020 SUBJECTIVE: The patient is hospital day #2, diagnosed with pyelonephritis at 35 weeks gestation, on Rocephin. The patient reports that overall she is feeling better. She does report fever last night, but reports improvement of her right flank pain. PHYSICAL EXAMINATION: VITAL SIGNS: Patient spiked a temperature last night at 102.7 that seemed fairly persistent into the night between 100.4 and 102.7. In general, at the time of my evaluation, she is feeling much better, is afebrile. Alert and oriented. Cooperative and pleasant to interact with. Her CVA tenderness is present, but much improved. Fetus has a baseline in the 140s with moderate long-term variability, positive 15 x 15 accelerations, no decelerations, and no contractions. ASSESSMENT AND PLAN: The patient is a 24-year-old female with an intrauterine at 34 weeks and 6 days, diagnosed with pyelonephritis a couple of days ago. The patient has been on Rocephin now for 2 days. I have some concern given that she has not shown any improvement in her fever trends or fever curve and I believe adding gentamicin is appropriate at this time. The patient does look stable and can continue care here at Labor and Delivery. Dr. Wright is the oncoming physician who will continue to make management decisions. Job ID: [id number]
[2020-08-15] MEDS: Ferrous Sulfate 325 MG TAB PO SCH ×2 (09:47→20:38)
--- NOTE | 2020-08-15 11:17 | RAD ---
Chest one view HISTORY: Cough. Fever. COMPARISON: 08/13/2020. FINDINGS: Cardiac silhouette is magnified by projection. Pulmonary vasculature is unremarkable. Shall ow inspiration accentuates pulmonary markings. Mediastinum is midline. No lobar consolidation or evidence of pneumothorax. IMPRESSION : No active cardiopulmonary abnormalities are demonstrated.
--- NOTE | 2020-08-15 11:23 | PDOC.BPN ---
- Brief Progress Note L&D Antepartum: Clam Bed Worker team: Lab review: Urine culture shows Klebsiella sensitive to meds being given. CXR ordered due to AM sputum per patient...results pending. Just taken Last temp was 102 despite tylenol about 1 hr ago FHTS are slightly tachy at 160s Renal sono shows no abscess Blood cultures are NGTD so I do not suspect a cardiac valve issue Assessment: 34 weeks 6 days today 1. Known UTI/pyelo on appropriate meds 2. Cough/sputum: this may be due to the ARDS picture from pyelo, but CXR done. COVID swab neg and Flu neg. Await results 3. FHT tachy will improve with maternal improvement 4. Patient recieved 1 unit PRBC this admit for anemia from sepsis/ RBC destruction and IVF hydration ADDENDUM: CXR is negative
--- NOTE | 2020-08-15 11:42 | PDOC.LDPN ---
Labor & Delivery Progress Note - Subjective Subjective: comfortable - Objective Vital signs reviewed and normal: yes (Persistently tachycardic in the 130s. Febrile to 101.5 and 102F despite Tylenol within last hour.) General: NAD, resting Uterine fundus: non tender FHT: category 2 ( tachycardia (160-180s). Good variability. ) [place] contractions every: None - Assessment (1) 35 weeks gestation of Code(s): Z3A.35 - 35 WEEKS GESTATION OF Current Visit: Yes Status: Acute (2) Blood transfusion during current hospitalisation Code(s): EFP9151 - Current Visit: Yes Status: Acute (3) Pyelonephritis affecting Code(s): O23.00 - INFECTIONS OF KIDNEY IN , UNSPECIFIED TRIMESTER Current Visit: Yes Status: Acute (4) Sepsis Code(s): A41.9 - SEPSIS, UNSPECIFIED ORGANISM Current Visit: Yes Status: Acute (5) UTI (urinary tract infection) Current Visit: No Status: Acute Plan: continue plan of care -: Reevaluated the patient and completed a physical exam. Breast, abdominal and lower extremity exam WNL. No areas suspicious for further infection. Source likely UTI/Pyelonephritis. Patient is complaining of persistent cough. Repeat CXR, flu and COVID swabs negative. Will rx for symptomatic relief. Sepsis 2/2 pyelonephritis: UCx grew Klebsiella sensitive to current abx. Added gentamicin this morning for dual coverage due to persistently high fevers. s/p fluid resuscitation. s/p 1u PRBC for decrease in Hb after fluid resuscitation vs anemia. Continue current Hypokalemia: Has been replaced, will check BMP this pm.
[2020-08-15] MEDS ORDERED: Lactated Ringer's 1,000 ML IV SCH (11:45)
[2020-08-15] MEDS ORDERED: Cepastat Lozenges 1 LOZ PO PRN (11:46)
[2020-08-15] MEDS: cefTRIAXone\\ROCEPHIN 2 GM in Sodium Chloride 0.9% 100 ML IVPB SCH (11:47)
--- NOTE | 2020-08-15 13:19 | PDOC.BPN ---
- Brief Progress Note L&D Check Patient feels well after her D&C. BPs are ok off Mag Our plan is to watch BPs until 1500 anf then home. case reviewed with Diana
[2020-08-15 13:37] LABS: #Lymphocytes 1.2 thou/uL (1.20-3.40); #Monocytes 0.4 thou/uL (0.11-0.59); %Basophils 0.2 % (0.0-1.0); %Eosinophils 0.2 % (0.0-10.0); %Lymphocytes 11.4 % (21.0-51.0); %Neutrophils 84.2 % (42.0-75.0); Mean Corpuscular HGB CONC 32.4 g/dL (32.0-36.0); Mean Corpuscular Hemoglobin 23.2 pg (27.0-31.0); Mean Corpuscular Volume 71.4 fL (78.0-98.0); Mean Platelet Volume 8.1 fL (7.4-10.4); Platelet Count 169 thou/uL (130-400); RBC Distribution Width 15.7 % (11.5-14.5); Red Blood Cell (RBC) Count 3.47 mill/uL (4.20-5.40); White Blood Cell (WBC) Count 10.6 thou/uL (4.8-10.8)
[2020-08-15 13:49] LABS: Anion Gap 14 mmol/L (10-20); BUN (Urea Nitrogen) Less than 4 mg/dL (7.0-18.7); Calc. Creatinine Clearance 211 mL/min (70-130); Calcium 8.7 mg/dL (7.8-10.44); Carbon Dioxide 20 mmol/L (22-29); Chloride 105 mmol/L (98-107); Estimated GFR-MDRD Greater than 90; Glucose 85 mg/dL (70-105); Potassium 3.1 mmol/L (3.5-5.1); Sodium 136 mmol/L (136-145)
[2020-08-15] MEDS: Lactated Ringer's 1,000 ML IV SCH ×2 (14:06→22:21)
--- NOTE | 2020-08-15 20:57 | PDOC.BPN ---
- Brief Progress Note Last 2 temps have been wnl. Last temp was 102 at 1100
[2020-08-15 21:22] LABS: #Monocytes 0.2 thou/uL (0.11-0.59); #Neutrophils 8.7 thou/uL (1.40-6.50); %Basophils 0.1 % (0.0-1.0); %Eosinophils 0.4 % (0.0-10.0); %Lymphocytes 10.1 % (21.0-51.0); %Monocytes 1.8 % (0.0-10.0); %Neutrophils 87.5 % (42.0-75.0); Hemoglobin 8.6 g/dL (12.0-16.0); Mean Corpuscular Hemoglobin 22.9 pg (27.0-31.0); Mean Corpuscular Volume 71.8 fL (78.0-98.0); Mean Platelet Volume 8.2 fL (7.4-10.4); Platelet Count 196 thou/uL (130-400); RBC Distribution Width 15.9 % (11.5-14.5); Red Blood Cell (RBC) Count 3.76 mill/uL (4.20-5.40); White Blood Cell (WBC) Count 9.9 thou/uL (4.8-10.8)
[2020-08-15] MEDS ORDERED: Famotidine 20 MG TAB PO PRN (22:31)
[2020-08-15] MEDS: Calcium Carbonate 500 MG ChewTAB PO PRN (22:50)
[2020-08-16] MEDS: Acetaminophen 325 MG TAB PO PRN ×3 (04:14→17:51)
--- NOTE | 2020-08-16 06:21 | PDOC.BPN ---
- Brief Progress Note L&D Meds: Rocephin and Gent CXR was neg Blood CXs NGTD S. Feels about the same O. Last Temp was 102 at 0400 UCX with klebsiella sensitive to both meds A/P: Assumed pyelo with klebsiella with persistent temps on day 3 of care 1. Continue ABX 2. If not better soon, may need to consider IOL/delivery...possible IAI? 3. Will discuss with oncall team 4. AM NST scheduled
[2020-08-16] MEDS: Lactated Ringer's 1,000 ML IV SCH (06:24)
[2020-08-16] MEDS: NS 0.9% w/ 40 MEQ KCL 1,000 ML IV SCH ×2 (07:54→16:04)
[2020-08-16] MEDS: Ferrous Sulfate 325 MG TAB PO SCH ×2 (08:20→19:45)
[2020-08-16 10:16] LABS: #Lymphocytes 1.4 thou/uL (1.20-3.40); #Monocytes 0.3 thou/uL (0.11-0.59); #Neutrophils 5.5 thou/uL (1.40-6.50); %Basophils 0.2 % (0.0-1.0); %Eosinophils 0.4 % (0.0-10.0); %Lymphocytes 19.2 % (21.0-51.0); %Monocytes 3.6 % (0.0-10.0); %Neutrophils 76.6 % (42.0-75.0); Hemoglobin 7.7 g/dL (12.0-16.0); Mean Corpuscular HGB CONC 32.9 g/dL (32.0-36.0); Mean Corpuscular Hemoglobin 22.8 pg (27.0-31.0); Mean Corpuscular Volume 69.4 fL (78.0-98.0); Mean Platelet Volume 8.2 fL (7.4-10.4); Platelet Count 145 thou/uL (130-400); RBC Distribution Width 15.9 % (11.5-14.5); Red Blood Cell (RBC) Count 3.37 mill/uL (4.20-5.40); White Blood Cell (WBC) Count 7.2 thou/uL (4.8-10.8)
[2020-08-16 10:32] LABS: Anion Gap 14 mmol/L (10-20); BUN (Urea Nitrogen) Less than 4 mg/dL (7.0-18.7); Calc. Creatinine Clearance 211 mL/min (70-130); Calcium 8.3 mg/dL (7.8-10.44); Carbon Dioxide 23 mmol/L (22-29); Chloride 103 mmol/L (98-107); Estimated GFR-MDRD Greater than 90; Glucose 95 mg/dL (70-105); Sodium 137 mmol/L (136-145)
[2020-08-16 10:34] LABS: Potassium 2.8 mmol/L (3.5-5.1)
[2020-08-16] MEDS: cefTRIAXone\\ROCEPHIN 2 GM in Sodium Chloride 0.9% 100 ML IVPB SCH (12:10)
[2020-08-16] MEDS ORDERED: Potassium Chloride 20 MEQ TAB PO SCH (14:15)
[2020-08-16] MEDS ORDERED: Lactated Ringer's 1,000 ML IV SCH (14:15)
[2020-08-16] MEDS ORDERED: Magnesium Sulfate 3 GM in Sodium Chloride 0.9% 100 ML IVPB SCH (14:30)
[2020-08-16] MEDS: Potassium Chloride 40 MEQ in Lactated Ringer's 1,000 ML IV SCH (17:52)
[2020-08-16] MEDS: Potassium Chloride 20 MEQ TAB PO SCH (19:46)
[2020-08-17] MEDS: Acetaminophen 325 MG TAB PO PRN (03:57)
[2020-08-17 07:06] LABS: #Eosinphils 0.2 thou/uL (0.0-0.7); #Lymphocytes 1.5 thou/uL (1.20-3.40); #Monocytes 0.4 thou/uL (0.11-0.59); #Neutrophils 3.9 thou/uL (1.40-6.50); %Basophils 0.6 % (0.0-1.0); %Eosinophils 3.5 % (0.0-10.0); %Lymphocytes 24.7 % (21.0-51.0); %Monocytes 7.2 % (0.0-10.0); Hemoglobin 8.8 g/dL (12.0-16.0); Mean Corpuscular HGB CONC 33.1 g/dL (32.0-36.0); Mean Corpuscular Hemoglobin 23.4 pg (27.0-31.0); Mean Corpuscular Volume 70.6 fL (78.0-98.0); Platelet Count 194 thou/uL (130-400); RBC Distribution Width 15.9 % (11.5-14.5); Red Blood Cell (RBC) Count 3.76 mill/uL (4.20-5.40)
[2020-08-17 07:30] LABS: ALT (SGPT) 22 U/L (8-55); AST (SGOT) 31 U/L (5-34); Albumin 2.7 g/dL (3.5-5.0); Alkaline Phosphatase 144 U/L (40-110); Anion Gap 12 mmol/L (10-20); BUN (Urea Nitrogen) 4 mg/dL (7.0-18.7); Bilirubin, Total 0.3 mg/dL (0.2-1.2); Calc. Creatinine Clearance 203 mL/min (70-130); Calcium 8.5 mg/dL (7.8-10.44); Carbon Dioxide 23 mmol/L (22-29); Chloride 104 mmol/L (98-107); Estimated GFR-MDRD Greater than 90; Globulin 3.3 g/dL (2.4-3.5); Glucose 82 mg/dL (70-105); Potassium 3.7 mmol/L (3.5-5.1); Sodium 135 mmol/L (136-145)
--- NOTE | 2020-08-17 07:41 | PRG ---
DATE OF SERVICE: 08/17/2020 PRIMARY OB: Dr. Lamberto Celestin. SUBJECTIVE: The patient is a 24-year-old, G9, P6 female with an intrauterine at 35 weeks and a day, who is admitted for pyelonephritis on 08/13/2020. Two days ago, we added gentamicin to her regimen of daily Rocephin. Due to lack of improvement. She, in the last 24 hours, has shown a T-max of 100.7, which is a marked improvement from her previous days where she was spiking up to above 102.0. The patient reports she is feeling much better today. She has no flank pain and overall is doing better. OBJECTIVE: VITAL SIGNS: Most recent signs about 4 o'clock this morning, blood pressure is 123/75, heart rate of 115, temperature 100.7. GENERAL: She appears to be in no acute distress. She is alert, oriented, cooperative, and pleasant to interact. HEENT: Head normocephalic and atraumatic. ABDOMEN: Soft, nontender. EXTREMITIES: Nontender and nonedematous. heart tracing shows fetus with the baseline in the 120s with moderate long-term variability, positive 15 x 15 accelerations, no decelerations. ASSESSMENT AND PLAN: The patient is a 24-year-old multiparous female with an intrauterine at 35 weeks and a day, admitted for pyelonephritis who is responding appropriately now to gentamicin and Rocephin. We will be transferring her out to the floor as Labor and Delivery is quite full this morning. There she will continue to receive her daily antibiotics and anticipate discharge in the coming days. Job ID: [id number]
[2020-08-17] MEDS: Ferrous Sulfate 325 MG TAB PO SCH ×2 (08:02→16:45)
[2020-08-17] MEDS: Potassium Chloride 20 MEQ TAB PO SCH (08:04)
[2020-08-17] MEDS: NS 0.9% w/ 40 MEQ KCL 1,000 ML IV SCH ×4 (09:41→14:06)
[2020-08-17] MEDS: Lactated Ringer's 1,000 ML IV SCH (11:11)
[2020-08-17] MEDS: Potassium Chloride 40 MEQ in Lactated Ringer's 1,000 ML IV SCH (12:21)
[2020-08-17] MEDS: Calcium Carbonate 500 MG ChewTAB PO PRN (12:26)
[2020-08-17] MEDS: cefTRIAXone\\ROCEPHIN 2 GM in Sodium Chloride 0.9% 100 ML IVPB SCH (12:40)
[2020-08-17] MEDS ORDERED: Lactated Ringer's 1,000 ML IV SCH (23:45)
--- NOTE | 2020-08-18 06:07 | PDOC.BPN ---
- Brief Progress Note Discharge note Patient seen by me Ready for DC on keflex Vitals reviewed Afebrile for 24 hrs See DISCHARGE dictation
[2020-08-18] MEDS: Ferrous Sulfate 325 MG TAB PO SCH (08:32)
[2020-08-18] MEDS: Potassium Chloride 40 MEQ in Lactated Ringer's 1,000 ML IV SCH (08:37)
[2020-08-18] MEDS: cefTRIAXone\\ROCEPHIN 2 GM in Sodium Chloride 0.9% 100 ML IVPB SCH (11:41)
[2020-08-18 12:01] VITALS: BP 111/66; TEMP 98
--- NOTE | 2020-08-18 14:16 | DIS ---
DATE OF ADMISSION: 08/13/2020 DATE OF DISCHARGE: 08/18/2020 PRINCIPAL DIAGNOSES: 1. 35-week gestation. 2. Sepsis. 3. Blood transfusion during this hospitalization. 4. Pyelonephritis affecting . HOSPITAL COURSE: In brief, this patient was admitted with Dr. Mendoza on August 13, 2020. This patient is a patient of Dr. Celestin and this patient presented with low back pain. She was a 24-year-old G9, P6, AB2. She did have a urine culture that had grown out Klebsiella pneumoniae, intermediate to nitrofurantoin, but sensitive to all other antibiotics. Dr. Celestin's office had originally given nitrofurantoin, but then changed it to a cephalosporin, which she states that she had been taking. But in the emergency room, she was febrile, tachycardic, and had a lactate of 3.7, and these findings were consistent with severe sepsis. Her temperature was 101.1. COVID test was negative. She was admitted for possible pyelonephritis with urosepsis. She did begin ceftriaxone, IV fluids, and a repeat urine culture was obtained. Urine culture did return positive for Klebsiella pneumoniae, rowe sensitive to antibiotics with an intermediate sensitivity to nitrofurantoin. Due to persistent fevers after about 2 days, she was also begun on gentamicin for double coverage. This helped her clinically improve. Her white blood cell count had gone from 22.4 initially down to 10.6 on August 15. By day of discharge, her white blood cell count was 6.0 taken on August 17. Before I was involved in the patient's care, she did have 1 unit of packed red blood cells given by other members of the care team as her initial hematocrit of 30 had decreased down to 23.9, and final hematocrit by discharge was 26.6. She continued on her antibiotics throughout her hospital course. Chest x-ray was also performed during the hospital admission and it was negative. Renal ultrasound was negative for abscess. I evaluated the patient on August 18, 2020, and found her now free for fever for 24 hours. As she was clinically improved, decision was made to send her home on Keflex to complete seven days of therapy. She will also follow up with Dr. Celestin. Job ID: [id number]
== END 2020-08-18 12:35 | disposition home or self-care (01) | DRG 831 ==
LOC: ERS 10:59 → 3SW 14:50 → L&D 14:56 → 3SW 08-17 09:36
PROVIDERS: ADMIT Obstetrics & Gynecology; ATTEND Obstetrics & Gynecology
PROC: 30233N1 Transfusion of Nonautologous Red Blood Cells into Peripheral Vein, Percutaneous Approach (ICD-10-PCS; principal; 2020-08-14)
DX: O98.813 Other maternal infectious and parasitic diseases complicating pregnancy, third trimester (principal); A41.59 Other Gram-negative sepsis; R65.20 Severe sepsis without septic shock; O23.03 Infections of kidney in pregnancy, third trimester; Z3A.35 35 weeks gestation of pregnancy; Z20.828 Contact with and (suspected) exposure to other viral communicable diseases; O99.013 Anemia complicating pregnancy, third trimester; D50.9 Iron deficiency anemia, unspecified; E87.6 Hypokalemia; O99.283 Endocrine, nutritional and metabolic diseases complicating pregnancy, third trimester; O36.8330 Maternal care for abnormalities of the fetal heart rate or rhythm, third trimester, not applicable or unspecified; Z90.49 Acquired absence of other specified parts of digestive tract
CPT/HCPCS: 36415; 36430; 59025; 71045; 76770; 80048; 80053; 81003; 81015; 83605; 83735; 85025; 86780; 86850; 86900; 86901; 87040; 87077; 87081; 87086; 87186; 87340; 87430; 87804; 93005; 96365; 96372; 96375; J0696; J1580; J2405; J3370; J3475; J3480; J3490; J7120; P9016; U0002

== ENCOUNTER 2020-09-24 11:18 | Day surgery (SDC) | payer OTHER ==
[2020-09-24] MEDS ORDERED: hydrALAZINE 20 MG/ML VIAL SLOW IVP PRN (14:44)
== END 2020-09-24 12:00 | disposition home or self-care (01) ==
LOC: L&D/OP 11:18
PROVIDERS: ATTEND Obstetrics & Gynecology
DX: O48.0 Post-term pregnancy (principal); Z3A.40 40 weeks gestation of pregnancy

== ENCOUNTER 2020-09-28 17:09 | Inpatient (IN) | payer OTHER ==
[2020-09-28 18:06] VITALS: BMI 30.4
[2020-09-28] MEDS ORDERED: NS / Oxytocin 40 units/1000ml 1,000 ML IV PRN (19:33)
[2020-09-28] MEDS ORDERED: Lidocaine 1% (PF) 30 ML VIAL SC PRN (19:33)
[2020-09-28] MEDS ORDERED: Promethazine HCl 25 MG/ML VIAL IM PRN (19:33)
[2020-09-28] MEDS ORDERED: hydrALAZINE 20 MG/ML VIAL SLOW IVP PRN (19:33)
[2020-09-28] MEDS ORDERED: Ondansetron PF 4 MG/2 ML Vial IVP PRN (19:33)
[2020-09-28] MEDS ORDERED: Carboprost 250 MCG/ML AMP IM PRN (19:39)
[2020-09-28] MEDS ORDERED: Diphenoxylate HCl/Atropine Tablet PO PRN (19:39)
[2020-09-28] MEDS ORDERED: Ibuprofen 800 MG TAB PO PRN (19:39)
[2020-09-28] MEDS ORDERED: Methylergonovine 0.2 MG/ML VIAL IM PRN (19:39)
[2020-09-28] MEDS ORDERED: Butorphanol Tartrate 1 MG/ML VIAL SLOW IVP PRN (19:39)
[2020-09-28] MEDS ORDERED: HYDROcodone/Acetaminophen 5/325 mg Tablet PO PRN (19:39)
[2020-09-28] MEDS ORDERED: Misoprostol 200 MCG TAB PR PRN (19:39)
[2020-09-28] MEDS ORDERED: Penicillin G Potassium 5 MILL.UNITS in Sodium Chloride 0.9% 100 ML IVPB SCH (19:45)
[2020-09-28] MEDS ORDERED: Lactated Ringer's 1,000 ML IV SCH (19:45)
[2020-09-28 20:15] LABS: Hemoglobin 10.3 g/dL (12.0-16.0); Mean Corpuscular HGB CONC 32.2 g/dL (32.0-36.0); Mean Corpuscular Hemoglobin 22.5 pg (27.0-31.0); Mean Corpuscular Volume 69.9 fL (78.0-98.0); Mean Platelet Volume 8.9 fL (7.4-10.4); Platelet Count 360 thou/uL (130-400); RBC Distribution Width 17.9 % (11.5-14.5); Red Blood Cell (RBC) Count 4.55 mill/uL (4.20-5.40); White Blood Cell (WBC) Count 9.4 thou/uL (4.8-10.8)
[2020-09-28 20:54] LABS: Syphilis Antibody Nonreactive (Nonreactive); Syphilis Antibody Index 0.04 S/CO (<1.00 Non-Reactive)
--- NOTE | 2020-09-28 21:19 | OP ---
DATE OF PROCEDURE: 09/28/2020 PREOPERATIVE DIAGNOSIS: 1. Forty-one weeks with unripe cervix. 2. Grand multiparity. PROCEDURE PERFORMED: Cook balloon placement. PROCEDURE IN DETAIL: The patient was placed in dorsal lithotomy position. Speculum to visualize the cervixm which was prepped with Betadine. Ring forceps were used to place the Cook balloon completely through the cervical os. The uterine balloon was then filled with 40 mL of sterile water. Catheter was then withdrawn until the uterine balloon was firmly applied to the inner os cervix. The vaginal balloon was then inflated with 40 mL of water. Speculum was removed. Balloon catheter was taped/fastened to the patient's leg. Another 40 mL was placed in both the vaginal and uterine balloons for a total of 80 mL in both balloons. She tolerated the procedure well and suffered no acute complications. Job ID: [id number] [id number]
[2020-09-28] MEDS ORDERED: Penicillin G 2.5 MILL.units 2.5 MILL.UNITS in Premix Bag 1 BAG IVPB SCH (23:59)
[2020-09-29 01:42] LABS: HBSAg Index 0.18 S/CO (0-0.99); Hep B Surf Ag Non-Reactive S/CO (NonReactive)
[2020-09-29 06:15] LABS: SARS-CoV-2 by NAA DETECTED (NotDetected)
[2020-09-29 06:16] LABS: SARS-CoV-2 MS2 Positive; SARS-CoV-2 N Gene Positive; SARS-CoV-2 S Gene Negative; SARS-CoV-2 orf1ab Positive
[2020-09-29] MEDS ORDERED: NS w/ Oxytocin 30 units 500 ML IVPB PRN (07:00)
[2020-09-29] MEDS ORDERED: NS w/ Oxytocin 30 units 500 ML IV SCH ×2 (07:00)
[2020-09-29] MEDS ORDERED: Fentanyl 4 mcg/Bup 0.1% Cadd 100 ML ONE ×2 (14:32→14:34)
[2020-09-29] MEDS ORDERED: HYDROcodone/Acetaminophen 5/325 mg Tablet PO PRN ×2 (15:30)
[2020-09-29] MEDS ORDERED: Milk Of Magnesia 30 ML UDCUP PO PRN (15:30)
[2020-09-29] MEDS ORDERED: Bisacodyl 10 MG SUPP PR PRN (15:30)
[2020-09-29] MEDS ORDERED: hydrALAZINE 20 MG/ML VIAL SLOW IVP PRN (15:30)
[2020-09-29] MEDS ORDERED: NS / Oxytocin 40 units/1000ml 1,000 ML IV SCH (15:30)
[2020-09-29] MEDS ORDERED: Ondansetron PF 4 MG/2 ML Vial IVP PRN (15:30)
[2020-09-29] MEDS ORDERED: Lanolin Ointment 7 GM TUBE TOP PRN (15:30)
[2020-09-29] MEDS ORDERED: Adacel (T-DAP) 0.5 ML SYRINGE IM ONE (16:00)
[2020-09-29] MEDS ORDERED: Ferrous Sulfate 325 MG TAB PO SCH (17:00)
[2020-09-29] MEDS: Docusate Calcium (SURFAK) 240 MG CAP PO SCH (22:28)
[2020-09-29] MEDS: Ibuprofen 800 MG TAB PO SCH (22:28)
[2020-09-30] MEDS: Ibuprofen 800 MG TAB PO SCH ×3 (05:42→20:59)
[2020-09-30] MEDS: Prenatal Vitamin 1 TAB PO SCH (08:21)
[2020-09-30] MEDS: Docusate Calcium (SURFAK) 240 MG CAP PO SCH ×2 (08:21→21:00)
[2020-10-01] MEDS: Ibuprofen 800 MG TAB PO SCH ×2 (05:00→12:32)
[2020-10-01] MEDS: Docusate Calcium (SURFAK) 240 MG CAP PO SCH (08:26)
[2020-10-01] MEDS: Prenatal Vitamin 1 TAB PO SCH (08:26)
[2020-10-01 10:53] VITALS: BP 109/66; TEMP 98.6
== END 2020-10-01 14:50 | disposition home or self-care (01) | DRG 805 ==
LOC: L&D/OP 17:09 → L&D 17:12 → 3SW 09-29 22:15
PROVIDERS: ADMIT Family Medicine; ATTEND Family Medicine
PROC: 0U7C7ZZ Dilation of Cervix, Via Natural or Artificial Opening (ICD-10-PCS; 2020-09-28)
PROC: 8E0ZXY6 Isolation (ICD-10-PCS; 2020-09-28)
PROC: 10E0XZZ Delivery of Products of Conception, External Approach (ICD-10-PCS; principal; 2020-09-30)
PROC: 10907ZC Drainage of Amniotic Fluid, Therapeutic from Products of Conception, Via Natural or Artificial Opening (ICD-10-PCS; 2020-09-30)
PROC: 3E0P7VZ Introduction of Hormone into Female Reproductive, Via Natural or Artificial Opening (ICD-10-PCS; 2020-09-30)
PROC: 3E033VJ Introduction of Other Hormone into Peripheral Vein, Percutaneous Approach (ICD-10-PCS; 2020-09-30)
DX: O69.1XX0 Labor and delivery complicated by cord around neck, with compression, not applicable or unspecified (principal); U07.1 COVID-19; Z37.0 Single live birth; O98.52 Other viral diseases complicating childbirth; O99.52 Diseases of the respiratory system complicating childbirth; Z3A.40 40 weeks gestation of pregnancy
CPT/HCPCS: 36415; 85027; 86780; 86850; 86900; 86901; 87340; 87635; 90715; J2405; U0003

== ENCOUNTER 2021-06-06 21:18 | Emergency (ER) | payer OTHER ==
[2021-06-06 22:48] LABS: Bilirubin Negative (Negative); Blood, Urine Negative (Negative); Clarity Clear (Clear); Glucose, Urine (Dipstick) Normal (Negative); Ketone, Urine Negative (Negative); Leukocyte Negative Leu/uL (Negative); Nitrite Negative (Negative); Protein, Urine (Dipstick) 20 mg/dL (Neg-Trace); Specific Gravity, Urine 1.029 (1.002-1.036); pH, Urine 6.5 (5.0-9.0)
[2021-06-06 22:49] LABS: Pregnancy Test - Urine (BHCG) POSITIVE (Negative); Pregu Control Background? CLEAR/WHITE (CLR/WHITE); Pregu Control Bar Appear? YES (CONTROL BAR); Specific Gravity 1.029 (1.002-1.036)
[2021-06-07 13:45] LABS: SARS-CoV-2 PCR by NAA Not Detected (NotDetected)
== END 2021-06-06 23:26 | disposition home or self-care (01) ==
LOC: ERS 21:18
DX: O21.9 Vomiting of pregnancy, unspecified (principal); O99.891 Other specified diseases and conditions complicating pregnancy; R53.81 Other malaise; R13.10 Dysphagia, unspecified; Z20.822 Contact with and (suspected) exposure to COVID-19
CPT/HCPCS: 81003; 81025; 99283; U0003; U0005

== ENCOUNTER 2021-06-20 21:09 | Emergency (ER) | payer OTHER | END 2021-06-20 22:46 | disposition home or self-care (01) | LOC: ERS 21:09 | DX: O21.0 Mild hyperemesis gravidarum (principal); Z3A.09 9 weeks gestation of pregnancy; Z79.899 Other long term (current) drug therapy | CPT/HCPCS: 99283 ==

== ENCOUNTER 2022-09-16 13:56 | Emergency (ER) | payer OTHER ==
[2022-09-16] MEDS ORDERED: Ketorolac Tromethamine 30 MG/ML VIAL ONE (14:16)
== END 2022-09-16 15:30 | disposition home or self-care (01) ==
LOC: ERS 13:56
DX: S16.1XXA Strain of muscle, fascia and tendon at neck level, initial encounter (principal); M79.10 Myalgia, unspecified site; V49.9XXA Car occupant (driver) (passenger) injured in unspecified traffic accident, initial encounter
CPT/HCPCS: 71046; 72070; 72100; 72125; 96372; J1885

== ENCOUNTER 2022-12-01 23:21 | Emergency (ER) | payer OTHER | END 2022-12-02 01:51 | disposition left against medical advice (07) | LOC: ERS 23:21 | DX: Z53.21 Procedure and treatment not carried out due to patient leaving prior to being seen by health care provider (principal) ==

== ENCOUNTER 2022-12-09 10:24 | Emergency (ER) | payer OTHER ==
[2022-12-09] MEDS ORDERED: Ketorolac Tromethamine 30 MG/ML VIAL ONE (11:05)
[2022-12-09 11:11] LABS: #Basophils 0.1 thou/uL (0.0-0.2); #Eosinphils 0.5 thou/uL (0.0-0.7); #Lymphocytes 1.9 thou/uL (1.20-3.40); #Monocytes 0.4 thou/uL (0.11-0.59); #Neutrophils 4.7 thou/uL (1.40-6.50); %Basophils 0.9 % (0.0-1.0); %Eosinophils 7.2 % (0.0-10.0); %Lymphocytes 24.2 % (21.0-51.0); %Monocytes 5.8 % (0.0-10.0); Hemoglobin 9.1 g/dL (12.0-16.0); Mean Corpuscular HGB CONC 31.1 g/dL (32.0-36.0); Mean Corpuscular Hemoglobin 19.7 pg (27.0-31.0); Mean Corpuscular Volume 63.4 fl (78.0-98.0); Mean Platelet Volume 10.4 fL (7.4-10.4); Platelet Count 398 10x3/uL (130-400); RBC Distribution Width 16.3 % (11.5-14.5); Red Blood Cell (RBC) Count 4.62 mill/uL (4.20-5.40); White Blood Cell (WBC) Count 7.6 10x3/uL (4.8-10.8)
[2022-12-09] MEDS ORDERED: Baclofen 10 MG TAB PO SCH (11:15)
[2022-12-09 11:30] LABS: Anisocytosis SLIGHT = 6-15 cells (100X) (0-5/hpf); Hypochromia SLIGHT = 6-15 cells (100X) (0-5/hpf); MDiff Complete? YES; Microcytosis SLIGHT = 6-15 cells (100X) (0-5/hpf); Ovalocytes SLIGHT = 2-5 cells (100X) (0-1/hpf); Platelet Morphology Comment Appears Adequate; Polychromasia SLIGHT = 2-3 cells (100X) (0-2/hpf); Reflex for Review?? YES
[2022-12-09 11:34] LABS: ALT (SGPT) 20 U/L (8-55); AST (SGOT) 17 U/L (5-34); Albumin 4.4 g/dL (3.5-5.0); Alkaline Phosphatase 110 U/L (40-110); Anion Gap 13 mmol/L (10-20); BUN (Urea Nitrogen) 9 mg/dL (7.0-18.7); Bilirubin, Total 0.3 mg/dL (0.2-1.2); Calc. Creatinine Clearance 0 mL/min (70-130); Calcium 9.3 mg/dL (7.8-10.44); Carbon Dioxide 24 mmol/L (22-29); Chloride 105 mmol/L (98-107); Estimated GFR 122; Globulin 3.3 g/dL (2.4-3.5); Glucose 99 mg/dL (70-105); Potassium 3.6 mmol/L (3.5-5.1); Protein, Total 7.7 g/dL (6.0-8.3); Sodium 138 mmol/L (136-145)
[2022-12-09 13:23] LABS: Bacteria/HPF None Seen HPF (None Seen); Bilirubin Negative (Negative); Blood, Urine 3+ (Negative); Clarity Clear (Clear); Glucose, Urine (Dipstick) Normal (Negative); Ketone, Urine Negative (Negative); Leukocyte Negative Leu/uL (Negative); Nitrite Negative (Negative); Pregnancy Test - Urine (BHCG) Negative (Negative); Pregu Control Background? CLEAR/WHITE (CLR/WHITE); Pregu Control Bar Appear? YES (CONTROL BAR); Protein, Urine (Dipstick) Negative (Neg-Trace); RBC/HPF 0-3 HPF (0-3); Specific Gravity 1.011 (1.002-1.036); Specific Gravity, Urine 1.011 (1.002-1.036); Urobilinogen Normal mg/dL (Less than 2); WBC/HPF 0-3 HPF (0-3); pH, Urine 6.5 (5.0-9.0)
== END 2022-12-09 13:25 | disposition home or self-care (01) ==
LOC: ERS 10:24
DX: M54.50 Low back pain, unspecified (principal); G89.29 Other chronic pain; D64.9 Anemia, unspecified; L40.9 Psoriasis, unspecified; F17.210 Nicotine dependence, cigarettes, uncomplicated
CPT/HCPCS: 36415; 72100; 80053; 81003; 81015; 81025; 85025; 85060; 96374; J1885